=== PATIENT | male | born 1960 | race Caucasian/White ===

== ENCOUNTER → 2018-10-13 | Outpatient (CLI) | payer BC ==
[~2018-10-13] MED LIST: COGE1INJ; HALO10TA4; No Historical Meds; PRESTIQ PO; RISPERDAL CONSTA; SERO1TAB; SERO200T; SERO400T3; SEROQUEL XR PO; ZYPR5TAB; invega sustenna IM; pristiq
--- NOTE | 2018-10-14 02:21 | REP ---
Clinical: Constipation. Technique: Two supine views of the abdomen and pelvis. Findings: Bowel gas pattern is nonspecific. No organomegaly. No abnormal calcifications. Skeletal structures are intact and normal for age. Impression: Nonspecific abdominal radiograph. Electronically Signed by Darius Rivera MD 10/14/2018 02:13 A
== END ==
LOC: M LRY 13:37
PROVIDERS: ATTEND Nurse Practitioner Adult Health
DX: K59.00 Constipation, unspecified (principal); R14.0 Abdominal distension (gaseous)

== ENCOUNTER → 2022-07-30 | Outpatient (CLI) | payer MEDICARE | LOC: M SLEEP HO 11:14 | PROVIDERS: ATTEND Internal Medicine Cardiovascular Disease | DX: I50.812 Chronic right heart failure (principal) ==

== ENCOUNTER → 2023-07-16 | Outpatient (CLI) | payer MEDICARE | LOC: M RAD 13:14 | PROVIDERS: ATTEND Internal Medicine Pulmonary Disease | DX: Z12.2 Encounter for screening for malignant neoplasm of respiratory organs (principal); Z87.891 Personal history of nicotine dependence; R91.8 Other nonspecific abnormal finding of lung field ==

== ENCOUNTER → 2023-09-03 | Outpatient (CLI) | payer MEDICARE | LOC: M PLAIMG 12:57 | PROVIDERS: ATTEND Internal Medicine Pulmonary Disease | DX: R91.8 Other nonspecific abnormal finding of lung field (principal); N28.1 Cyst of kidney, acquired; L13.9 Bullous disorder, unspecified; N62 Hypertrophy of breast ==

== ENCOUNTER → 2023-10-12 | Outpatient (CLI) | payer MEDICARE | LOC: M PLARAD 08:26 | PROVIDERS: ATTEND Internal Medicine Pulmonary Disease | DX: R91.8 Other nonspecific abnormal finding of lung field (principal) | CPT/HCPCS: 78815; A9552 ==

== ENCOUNTER → 2024-01-27 | Outpatient (CLI) | payer MEDICARE | LOC: M RAD 15:32 | PROVIDERS: ATTEND Internal Medicine Pulmonary Disease | DX: R91.8 Other nonspecific abnormal finding of lung field (principal) ==

== ENCOUNTER → 2024-08-08 | Outpatient (CLI) | payer MEDICARE | LOC: M RAD 09:52 | PROVIDERS: ATTEND Internal Medicine Pulmonary Disease | DX: R91.8 Other nonspecific abnormal finding of lung field (principal); J44.9 Chronic obstructive pulmonary disease, unspecified; J43.9 Emphysema, unspecified ==

== ENCOUNTER → 2025-01-11 | Outpatient (CLI) | payer MEDICARE | LOC: M PLAIMG 13:35 | PROVIDERS: ATTEND Internal Medicine Pulmonary Disease | DX: J43.9 Emphysema, unspecified (principal); R91.8 Other nonspecific abnormal finding of lung field; J92.9 Pleural plaque without asbestos ==

== ENCOUNTER → 2025-04-20 | Outpatient (CLI) | payer MEDICARE | LOC: M PLAIMG 07:01 | PROVIDERS: ATTEND Internal Medicine Pulmonary Disease | DX: R91.8 Other nonspecific abnormal finding of lung field (principal) ==

== ENCOUNTER → 2025-05-15 | Outpatient (CLI) | payer MEDICARE | LOC: M PLARAD 14:51 | PROVIDERS: ATTEND Internal Medicine Pulmonary Disease | DX: R91.8 Other nonspecific abnormal finding of lung field (principal) | CPT/HCPCS: 78815; A9552 ==